=== PATIENT | female | born 1980 | race African-American/Black ===

== ENCOUNTER 2017-05-01 10:05 | Emergency (ER) | payer OTHER ==
[~2017-05-01] VITALS: Ht 185.4 cm; Wt 116.6 kg
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
[~2017-05-01 10:05] MED LIST: ATARAX PO; MEDROL4 MG/DOSE- PO
== END 2017-05-01 11:20 | disposition home or self-care (01) ==
LOC: CED 10:05
DX: S46.912A Strain of unspecified muscle, fascia and tendon at shoulder and upper arm level, left arm, initial encounter (principal); V43.52XA Car driver injured in collision with other type car in traffic accident, initial encounter; Z79.899 Other long term (current) drug therapy
CPT/HCPCS: 73030; 99283